=== PATIENT | male | born 1955 | race Caucasian/White ===

== ENCOUNTER 2022-09-23 09:05 | Outpatient (OUT) | payer MEDICARE, BC, SELFPAY ==
--- NOTE | 2022-09-23 09:12 | XR_ITS ---
The [address] [address] Patient Name: SORAYA FLOWERS MRN: [id number] date: 1955 Sex: M Assigned Patient Location: [facility] Current Patient Location: [facility] Accession/Order Number: [id number] Exam Date: 09/23/2022 10:07 Report Date: 09/23/2022 10:28 At the request of: MIGUEL SNOWDEN Procedure: XR chest 2V EXAM: XR chest 2V HISTORY: PRE OP EXAM COMPARISON: None. TECHNIQUE: PA and lateral views of the chest. FINDINGS: The cardiomediastinal silhouette is normal. No focal consolidation is identified. There is no pneumothorax. No pleural effusion is noted. The osseous structures are intact. XR/XR chest 2V IMPRESSION: No acute cardiopulmonary process. Electronically authenticated by: MARTHA MATHIAS Date: 09/23/2022 10:28
--- NOTE | 2022-09-23 09:12 | ECG_ITS ---
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
--- NOTE | 2022-09-23 10:02 | P.GSHP_ITS ---
History of Present Illness History of Present Illness Chief complaint: elevated psa Narrative: Patient presents for preadmission testing. The patient reports he had an elevated PSA followed by an abnormal prostate biopsy in the office. The patient states he is not having any urinary symptoms and he has no complaints. He states that he does check his blood pressures at home and they usually run 140/70. He states he is very active. 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 Review of Systems ROS Narrative REVIEW OF SYSTEMS: Negative except as stated in HPI, ten or more systems reviewed. Constitutional: No fever , chills, weakness ENT: No sore throat or epistaxis Cardiovascular: No edema, chest pain, palpitations, or activity intolerance Respiratory: No shortness of breath, cough, or wheezing Musculoskeletal: No joint pain or swelling Gastrointestinal: No abdominal pain, constipation, diarrhea, or vomiting Genitourinary: No dysuria or hematuria Neurological: No numbness, tingling, weakness, or headache Psychiatric: No mood changes PFSH PFSH Medical History (Updated 09/23/22 @ 09:56 by Cyn Graves NP) Surgical History (Updated 09/23/22 @ 09:56 by Cyn Graves NP) Family History (Updated 09/23/22 @ 09:36 by Cyn Graves NP) Other Family history of bone cancer Family history of diabetes mellitus Family history of heart disease Family history of hypertension Glaucoma Hodgkins disease Social History (Updated 09/23/22 @ 09:28 by Cyn Graves NP) Within the past year, how often did you have a drink containing alcohol: 2-3 times a week Smoking status: Never smoker Non-prescribed substance use: denies use Previous occupational history: Retired Highest level of school completed/degree received: Bachelor's degree Meds Home Medications and Allergies Home Medications Medication Instructions Recorded Confirmed Type atorvastatin 20 mg tablet 20 mg PO QDAY 09/23/22 09/23/22 History brimonidine 0.2 % eye drops drp ophthalmic (eye) 09/23/22 History cholecalciferol (vitamin D3) 50 50 mcg PO DAILY 09/23/22 09/23/22 History mcg (2,000 unit) capsule diphenhydramine 25 0.5 tab PO QPM 09/23/22 09/23/22 History mg-acetaminophen 500 mg tablet (Tylenol PM Extra Strength) dorzolamide 2 % eye drops drp ophthalmic (eye) 09/23/22 History ibuprofen 800 mg tablet 800 mg PO Q8H PRN pain 09/23/22 09/23/22 History latanoprost 0.005 % eye drops drp ophthalmic (eye) 09/23/22 History magnesium 200 mg tablet 200 mg PO DAILY 09/23/22 09/23/22 History multivitamin 1 tab PO DAILY 09/23/22 09/23/22 History omeprazole 20 mg capsule,delayed mg 09/23/22 History release tamsulosin 0.4 mg capsule mg PO 09/23/22 History Allergies Allergy/AdvReac Type Severity Reaction Status Date / Time minocycline Allergy dizzy Verified 09/23/22 09:25 Penicillins Allergy Rash Verified 09/23/22 09:25 Exam Narrative Exam Narrative: Constitutional: Awake, alert, comfortable, well-appearing, nontoxic, interactive, vital signs as charted Head: Normocephalic, atraumatic Neck: Supple, normal appearance, normal range of motion, no meningeal signs, no lymphadenopathy Respiratory: No respiratory distress, breath sounds clear Cardiovascular: Bradycardic rate, Regular rhythm, strong and regular heart tones Abdomen: Nontender, normal bowel sounds, soft, no CVA tenderness Musculoskeletal: Normal gait, no swelling or edema Skin: No rashes or induration, no lesions, only visible skin inspected Neuro: No neurological deficits, normal sensation Psychiatric: Oriented ?3, normal affect Assessment and Plan Assessment and Plan (1) Elevated PSA: (2) Prostate cancer: Plan TRUS/biopsy Scheduled with Dr. Ko 10/01/2022.
[2022-09-23 10:04] LABS: Basophils Percent Auto 0.4 % (0.2-2.0); Eosinophils Absolute Auto 0.1 10^3/uL (0.0-0.7); Eosinophils Percent Auto 0.7 % (0.9-7.0); Hematocrit 48.1 % (42.0-54.0); Hemoglobin 15.9 g/dL (14.0-18.0); Immature Granulocytes Abs Auto 0.05 10^3/uL (0.00-0.03); Immature Granulocytes Pct Auto 0.7 % (0.0-0.5); Lymphocytes Percent Auto 14.4 % (20.5-60.0); Mean Corpuscular HGB Conc 33.1 g/dL (29.9-35.2); Mean Corpuscular Hemoglobin 29.3 pg (25.9-34.0); Mean Corpuscular Volume 88.6 fL (80.0-94.0); Mean Platelet Volume 9.9 fL (9.5-13.5); Monocytes Absolute Auto 0.5 10^3/uL (0.3-0.8); Monocytes Percent Auto 6.9 % (1.7-12.0); Neutrophils Absolute Auto 5.3 10^3/uL (1.4-6.5); Neutrophils Percent Auto 76.9 % (43.0-75.0); Platelet Count 215 10^3/uL (150-450); Red Blood Count 5.43 10^6/uL (4.70-6.10); Red Cell Distribution Width 13.7 % (11.0-15.0); White Blood Count 6.9 10^3/uL (4.0-11.0)
[2022-09-23 10:17] LABS: Anion Gap 11.2; BUN Creatinine Ratio 17.2; Calcium 9.1 mg/dL (8.5-10.1); Carbon Dioxide 27.3 mmol/L (21.0-32.0); Chloride 106 mmol/L (98-107); Estimated GFR (African America >60 (>=60); Estimated GFR (Non-African Ame 59 (>=60); Glucose 147 mg/dL (74-106); Potassium 4.5 mmol/L (3.5-5.1); Sodium 140 mmol/L (136-145)
[2022-09-23 10:37] LABS: Partial Thromboplastin Time 26.3 sec (22.3-36.2); Prothrombin Time 10.6 sec (9.0-11.6)
== END 2022-09-23 09:06 | disposition home or self-care (01) ==
PROVIDERS: Visit Provider Urology
DX: Z01.810 Encounter for preprocedural cardiovascular examination (principal); Z01.812 Encounter for preprocedural laboratory examination; R97.20 Elevated prostate specific antigen [PSA]; E78.5 Hyperlipidemia, unspecified; M19.90 Unspecified osteoarthritis, unspecified site; K21.9 Gastro-esophageal reflux disease without esophagitis; H40.9 Unspecified glaucoma
CPT/HCPCS: 71046; 80048; 85025; 85610; 85730; 93005; G0463

== ENCOUNTER 2022-10-01 06:53 | Day surgery (SDC) | payer MEDICARE, BC, SELFPAY ==
[2022-09-23 09:54] VITALS: BP 162/76; PULSE 48; RESP 14; TEMP 36.4; O2SAT 98; BMI 30.6
--- NOTE | 2022-10-01 06:48 | US_ITS ---
[address] [address] Patient Name: SORAYA FLOWERS MRN: [id number] date: 1955 Sex: M Assigned Patient Location: [facility] Current Patient Location: [facility] Accession/Order Number: [id number] Exam Date: 10/01/2022 08:20 Report Date: 10/02/2022 00:14 At the request of: MIGUEL KO Procedure: US prostate EXAMINATION: US prostate HISTORY: TRUS BX COMPARISON: No relevant comparison available. TECHNIQUE: Ultrasound exam for the prostate with an endorectal transducer was performed during prostate biopsy performed by Dr. Ko utilizing real-time and color duplex Doppler sonography. FINDINGS: ESTIMATED SIZE: 6.1 x 5.5 x 4.3 cm (75 mL), grade 3 APPEARANCE: Enlarged heterogeneous prostate. OTHER: 11 biopsies performed within left aspect of prostate, 12 on right. US/US prostate IMPRESSION: 1. Ultrasound-guided prostate biopsy performed by Dr. Ko. Electronically authenticated by: FRANKIE VAUGHN Date: 10/02/2022 00:14
[2022-10-01 07:23] VITALS: BP 172/80; PULSE 48; RESP 16; TEMP 36.3; O2SAT 97
[2022-10-01] MEDS: LACTATED RINGER'S SOLUTION 1,000 ML 50 ML IV (07:32)
[2022-10-01] MEDS: GENTAMICIN SULFATE 120 MG in 0.9 % SODIUM CHLORIDE 100 ML 206 MG IV (08:16)
[2022-10-01] MEDS: LIDOCAINE 2% JELLY 20 ML UR (08:28)
[2022-10-01 08:57] VITALS: BP 114/63; PULSE 60; RESP 14; O2SAT 96
--- NOTE | 2022-10-01 09:01 | PM.URSON ---
Urology Surgery Operative Note Operative Note Procedure Date: 10/01/22 Time Out Performed: yes Pre-op Diagnosis: elevated PSA and abnormal prostate MRI Post-op Diagnosis: same as pre-op Procedures performed: #1. Transrectal ultrasound of the prostate. #2. Prostate needle biopsies?20 Anesthesia: MAC and local Primary Surgeon: Teodoro Ko Complications: none Estimated blood loss (mL): 10 Findings: prostatic calcifications and one hypoechoic area at the right mid aspect. Specimens: prostate needle biopsies. Indications for Procedures: this gentleman has an elevated PSA, an abnormal prostate MRI and DAVIDA from a prior biopsy.he now presents for a repeat transrectal ultrasound and biopsy of the prostate. He has signed an informed consent after the risks were explained. Some of these risks include bleeding, infection, sepsis and anesthesia to name a few. Detailed description of Procedure: the patient was brought to the operating room and placed on the operating room table in the supine position. SCDs were placed on his lower extremities and turned on and functioning during the entire case. Timeout was done by all parties in the room. We all agreed upon the patient's identification and the planned procedures for this patient. Nitesh anesthesia was then administered. He was then rotated in the left lateral decubitus position. 2 percent lidocaine was passed per rectum. Ultrasound probe was passed per rectum. The prostate was scanned in the transverse and longitudinal views. The volume was calculated to be 75 g. Prostatic calcifications were noted on both sides of the peripheral zone. One hypoechoic area was seen on the left mid aspect. While in the longitudinal view, we began taking biopsies going from the left base towards the apex. I divided it up into 4 levels and from the 1st 3 levels I took [address] At the apex, level IV, I took 4 biopsies. We then did the right side. We similarly divided it up into 4 levels. From levels one and 4 I took 2 biopsies. From levels 2 and 3 I took 3 biopsies each. At the end of the procedure we had satisfactory cores. The probe was removed. He was transferred to the supine position. He was then transferred to the PACU in stable condition.
[2022-10-01 09:15] VITALS: BP 110/67; PULSE 55; RESP 16; O2SAT 95
--- NOTE | 2022-10-01 09:42 | PC.NURSE ---
Denies urge to void
[2022-10-01 09:48] VITALS: BP 135/81; PULSE 47; RESP 16; O2SAT 98
--- NOTE | 2022-10-01 09:53 | PC.NURSE ---
Up to bathroom and voided clear yellow urine
== END 2022-10-01 09:54 | disposition home or self-care (01) ==
PROVIDERS: Visit Provider Urology
PROC: (CPT 55700; principal; 2022-10-01 08:00)
DX: R97.20 Elevated prostate specific antigen [PSA] (principal); E78.5 Hyperlipidemia, unspecified; K21.9 Gastro-esophageal reflux disease without esophagitis; M19.90 Unspecified osteoarthritis, unspecified site; H40.9 Unspecified glaucoma; N40.1 Benign prostatic hyperplasia with lower urinary tract symptoms; R35.1 Nocturia; Z87.442 Personal history of urinary calculi
CPT/HCPCS: 55700; 36415; 76872; 88305; 88307; J2704